=== PATIENT | male | born 1955 | race Caucasian/White ===

== ENCOUNTER 2020-10-01 07:43 | Outpatient (CLI) | payer BC ==
[2020-10-01] MEDS ORDERED: Iopamidol 370 76% 100 ML VIAL ONE (09:33)
== END 2020-10-01 07:44 | disposition home or self-care (01) ==
LOC: CT 07:43
PROVIDERS: ATTEND Physician Assistant Medical
DX: K57.92 Diverticulitis of intestine, part unspecified, without perforation or abscess without bleeding (principal); R10.33 Periumbilical pain
CPT/HCPCS: 74177; 82565; Q9967